=== PATIENT | female | born 1960 | race Caucasian/White ===

== ENCOUNTER 2016-06-25 19:24 | Inpatient (IN) | payer OTHER ==
[~2016-06-25] VITALS: Ht 152.4 cm; Wt 63.6 kg
[~2016-06-25 19:24] MED LIST: ACETAMINOPHEN-1 EAC1 PO; ALPRAZOLAM0.25 M2 PO; B12 INJECTION; BENZONATATE100 MG PO; CIPRO500 MG PO; CYANOCOBAL1000 MCG/2 IM; CYCLOBENZAPRINE10 MG PO; DIVALPROEX SOD500 MG PO; DUONEB 2.5-0.5 M3 ML IH; ESCITALOPRAM OX10 MG PO; ESCITALOPRAM OX20 MG PO; FLONASE ALLERG9.9 ML BOTH NARES; FLONASE16 G1 BOTH NARES; FLOVENT 11120 INHALA IH; GABAPENTIN100 MG PO; IPRATROPIU0.2 MG/1 M IH; LAMICTAL25 MG PO; LEVOFLOXACIN750 MG PO; LEVOTHYROXINE50 MCG PO; LEXAPRO20 MG PO; LIBRIUM25 MG PO; LORAZEPAM1 MG PO; MUCINEX600 MG PO; Medrol Dosepak PO; NICOTINE PATCH1 EAC2 TD; OMEPRAZOLE40 M1 PO; PERCOCET 5/31 TABLET PO; PHENTERMINE H37.5 MG PO; PREDNISONE10 MG PO; PRILOSEC20 MG PO; PROVENTIL HFA6.7 GM IH; PROZAC40 MG PO; SUPREP BOWEL P354 ML PO; SYNTHROID50 MCG PO; TYLENOL WITH C1 EACH PO; VIVITROL380 MG/3.4 IM; XOPENEX1.25 MG/0. IH; ZITHROMAX500 MG PO
[2016-06-25 20:07] LABS: BASOPHIL COUNT 0.1 K/uL (0-0.1); EOSINOPHIL (%) 8.9 % (0-5); EOSINOPHIL COUNT 0.4 K/uL (0-0.3); IMMATURE GRANULOCYTE (%) 0.2 % (0.0-0.7); IMMATURE GRANULOCYTE COUNT 0.1 K/uL; LYMPHOCYTE COUNT 1.4 K/uL (1.0-2.8); MCH 32.1 PG (29.0-34.0); MCHC 34.6 G/DL (30.0-36.0); MCV 92.6 FL (83-99); MEAN PLAT.VOLUME 8.6 uM^3 (9.5-12.4); MONOCYTE (%) 6.5 % (3-12); MONOCYTE COUNT 0.3 K/uL (0-0.8); NEUTROPHIL COUNT 1.9 K/uL (1.8-6.4); PLATELET COUNT 204 K/uL (156-360); RBC DIS.WIDTH-CV 12.7 % (11.8-14.6); RBC DIS.WIDTH-SD 42.1 % (39-53); RED BLOOD COUNT 4.21 M/uL (3.80-5.20)
[2016-06-25 20:15] LABS: CHLORIDE 107 mEq/L (99-109); POTASSIUM 3.3 mEq/L (3.7-5.4); SODIUM 141 mEq/L (136-147)
[2016-06-25 20:17] LABS: GLUCOSE 87 mg/dL (70-99)
[2016-06-25 20:18] LABS: ANION GAP 15 MEQ/L (2-14)
[2016-06-25 20:19] LABS: TOTAL BILIRUBIN 0.5 mg/dL (0.0-1.0)
[2016-06-25 20:20] LABS: SERUM ETHYL ALCOHOL 59 mg/dL
[2016-06-25 20:21] LABS: ALKALINE PHOSPHATASE 95 IU/L (3-129); GFR ESTIMATE (CALCULATED) > 59 mL/min/
[2016-06-25 20:23] LABS: UREA NITROGEN (BUN) 12 mg/dL (9-23)
[2016-06-25 20:24] LABS: SALICYLATE < 5.0 MG/DL (15-30)
[2016-06-25 21:40] LABS: ADD MIUA? NO; BILIRUBIN NEGATIVE; BLOOD NEGATIVE; COLOR COLORLESS ((YELLOW)); GLUCOSE (STRIP) NEGATIVE; KETONES NEGATIVE; LEUKOCYTES NEGATIVE; NITRITE NEGATIVE; PROTEIN (STRIP) NEGATIVE; SPECIFIC GRAVITY 1.003 (1.000-1.030); UCUL ADDED? NO; UROBILINOGEN 0.2 MG/DL (0.2-1.0)
[2016-06-25 21:58] LABS: ADD MEDTOX COMMENT Y; AMPHETAMINE NEGATIVE (500 ng/mL); BARBITURATES NEGATIVE (200 ng/mL); BENZODIAZEPINES PRESUMPTIVE POSITIVE (150 ng/mL); COCAINE NEGATIVE (150 ng/mL); INTERNAL CONTROLS VALID? YES; METHADONE NEGATIVE (200 ng/mL); METHAMPHETAMINE NEGATIVE (500 ng/mL); OPIATES (MORPHINE) NEGATIVE (100 ng/mL); OXYCODONE NEGATIVE (100 ng/mL); PHENCYCLIDINE NEGATIVE (25 ng/mL); PROPOXYPHENE NEGATIVE (300 ng/mL); THC CANNABINOIDS NEGATIVE (50 ng/mL); TRICYCLIC ANTIDEPRESSANTS NEGATIVE (300 ng/mL)
[2016-06-25 22:47] LABS: BENZODIAZEPINES QUANT VALUE 0 NG/ML
[2016-06-25 23:37] LABS: BENZODIAZEPINES, URINE SCREEN Negative (200 ng/mL)
[2016-06-26] MEDS ORDERED: LORAZEPAM0.5 MG PO (03:39)
[2016-06-26] MEDS ORDERED: SERTRALINE HCL25 MG PO (03:39)
[2016-06-26 05:37] VITALS: BP 113/79
[2016-06-26 07:39] VITALS: BP 103/61
[2016-06-26 15:44] VITALS: BP 110/64
[2016-06-27 07:52] VITALS: BP 115/67
[2016-06-27 15:21] VITALS: BP 105/71
[2016-06-28 07:47] VITALS: BP 102/60
[2016-06-28] MEDS ORDERED: SERTRALINE HCL50 MG PO (09:39)
== END 2016-06-28 11:56 | disposition home or self-care (01) | DRG 885 ==
LOC: EME 19:24 → 1WEST 06-26 03:06 → EDOF 06-26 03:06 → 1WEST 06-26 03:06
PROVIDERS: Emergency Medicine
DX: F33.1 Major depressive disorder, recurrent, moderate (principal); F13.10 Sedative, hypnotic or anxiolytic abuse, uncomplicated; F10.10 Alcohol abuse, uncomplicated
CPT/HCPCS: 80053; 81003; 84132; 84999; 85025; 90837; 97150 GO; 97165 GO; 99281; 99285; G0480; J7030

== ENCOUNTER 2016-10-02 18:40 | Emergency (ER) | payer OTHER ==
[~2016-10-02] VITALS: Ht 152.4 cm; Wt 67.5 kg
[~2016-10-02 18:40] MED LIST changes: +LORAZEPAM0.5 MG PO; +SERTRALINE HCL25 MG PO; +SERTRALINE HCL50 MG PO
[2016-10-02 18:43] VITALS: BP 142/87
[2016-10-02 19:08] LABS: HEMATOCRIT 43.6 % (36.0-46.0); MCH 31.4 PG (29.0-34.0); MEAN PLAT.VOLUME 8.3 uM^3 (9.5-12.4); PLATELET COUNT 208 K/uL (156-360); RBC DIS.WIDTH-CV 12.5 % (11.8-14.6); RBC DIS.WIDTH-SD 43.8 % (39-53); RED BLOOD COUNT 4.59 M/uL (3.80-5.20); WHITE BLOOD COUNT 5.5 K/uL (4.1-10.2)
[2016-10-02 19:30] LABS: CHLORIDE 107 mEq/L (99-109); POTASSIUM 4.2 mEq/L (3.7-5.4); SODIUM 140 mEq/L (136-147)
[2016-10-02 19:32] LABS: GLUCOSE 90 mg/dL (70-99)
[2016-10-02 19:34] LABS: ANION GAP 11 MEQ/L (2-14)
[2016-10-02 19:35] LABS: SERUM ETHYL ALCOHOL 242 mg/dL
[2016-10-02 19:36] LABS: GFR ESTIMATE (CALCULATED) > 59 mL/min/
[2016-10-02 19:37] LABS: UREA NITROGEN (BUN) 5 mg/dL (9-23)
== END 2016-10-02 19:49 | disposition left against medical advice (07) ==
LOC: EME 18:40
DX: F10.99 Alcohol use, unspecified with unspecified alcohol-induced disorder (principal); R45.851 Suicidal ideations; Z53.21 Procedure and treatment not carried out due to patient leaving prior to being seen by health care provider
CPT/HCPCS: 80048; 85027; G0480

== ENCOUNTER 2016-10-18 21:01 | Emergency (ER) | payer SELFPAY ==
[~2016-10-18] VITALS: Ht 152.4 cm; Wt 67.6 kg
[2016-10-18 21:46] LABS: HEMATOCRIT 40.2 % (36.0-46.0); MCH 31.9 PG (29.0-34.0); MCHC 34.3 G/DL (30.0-36.0); MCV 93.1 FL (83-99); MEAN PLAT.VOLUME 8.1 uM^3 (9.5-12.4); PLATELET COUNT 208 K/uL (156-360); RBC DIS.WIDTH-CV 12.3 % (11.8-14.6); RBC DIS.WIDTH-SD 42.6 % (39-53); RED BLOOD COUNT 4.32 M/uL (3.80-5.20); WHITE BLOOD COUNT 5.3 K/uL (4.1-10.2)
[2016-10-18 21:54] LABS: CHLORIDE 103 mEq/L (99-109); POTASSIUM 3.6 mEq/L (3.7-5.4); SODIUM 135 mEq/L (136-147)
[2016-10-18 21:56] LABS: GLUCOSE 89 mg/dL (70-99)
[2016-10-18 21:57] LABS: ANION GAP 11 MEQ/L (2-14)
[2016-10-18 21:59] LABS: GFR ESTIMATE (CALCULATED) > 59 mL/min/; SERUM ETHYL ALCOHOL 231 mg/dL
[2016-10-18 22:00] LABS: UREA NITROGEN (BUN) 9 mg/dL (9-23)
[2016-10-19 00:22] LABS: AMPHETAMINE NEGATIVE (500 ng/mL); BARBITURATES NEGATIVE (200 ng/mL); BENZODIAZEPINES NEGATIVE (150 ng/mL); COCAINE NEGATIVE (150 ng/mL); INTERNAL CONTROLS VALID? YES; METHADONE NEGATIVE (200 ng/mL); METHAMPHETAMINE NEGATIVE (500 ng/mL); OPIATES (MORPHINE) NEGATIVE (100 ng/mL); OXYCODONE NEGATIVE (100 ng/mL); PHENCYCLIDINE NEGATIVE (25 ng/mL); PROPOXYPHENE NEGATIVE (300 ng/mL); THC CANNABINOIDS NEGATIVE (50 ng/mL); TRICYCLIC ANTIDEPRESSANTS NEGATIVE (300 ng/mL)
[2016-10-19] MEDS ORDERED: LIBRIUM25 MG PO (04:25)
[2016-10-19 04:49] VITALS: BP 118/80
== END 2016-10-19 04:49 | disposition home or self-care (01) ==
LOC: EME 21:01
DX: F10.229 Alcohol dependence with intoxication, unspecified (principal); Y90.7 Blood alcohol level of 200-239 mg/100 ml; Z87.442 Personal history of urinary calculi; F17.200 Nicotine dependence, unspecified, uncomplicated
CPT/HCPCS: 80048; 85027; 90839; 99281; 99285; G0480